=== PATIENT | male | born 1990 | race Caucasian/White ===

== ENCOUNTER 2018-03-25 16:57 | Emergency (ER) | payer MEDICAID, OTHER ==
[2018-03-25 17:14] VITALS: BP 147/97
--- NOTE | 2018-03-25 18:29 | ED Physician Documentation ---
PD HPI OPHTHO - Stated complaint Stated Complaint: R EYE PX - Chief complaint Chief Complaint: Heent - History obtained from History obtained from: Patient - History of Present Illness Timing - onset: Yesterday (got dust or such in eye yesterday. was using bench grinder but had eye wear on. He had feeling of FB that fell into eye and not forceful injury.) Timing - duration: Days (1 day - he tried irrigating eye yesterday. Eye red and irritated, with still FB feeling today.) Timing - details: Abrupt onset, Still present Location: Right Quality / character: Aching Associated symptoms: Redness, FB sensation. No: Swelling, Discharge Contributing factors: FB. No: Wears contacts Similar symptoms before: Has not had sx before Recently seen: Not recently seen Review of Systems Eyes: reports: Irritation. denies: Loss of vision, Decreased vision, Photophobia, Discharge Nose: reports: Rhinorrhea / runny nose, Congestion Throat: reports: Sore throat Respiratory: reports: Cough PD PAST MEDICAL HISTORY - Past Medical History Cardiovascular: None Respiratory: None Neuro: None Endocrine/Autoimmune: None - Present Medications Home Medications: Ambulatory Orders Medication Instructions Recorded Confirmed Ketorolac 0.45% Ophth Drops 2 each RIGHTEYE TID #1 bottle 03/25/18 [Acuvail] - Allergies Allergies/Adverse Reactions: Allergies Allergy/AdvReac Type Severity Reaction Status Date / Time Penicillins Allergy Unknown Verified 03/25/18 17:14 PD ED PE NORMAL - Vitals Vital signs reviewed: Yes - General General: Alert and oriented X 3, No acute distress, Well developed/nourished - HEENT HEENT: PERRL, EOMI, Moist mucous membranes, Pharynx benign - Neck Neck: Supple, no meningeal sign, No adenopathy PD ED PE EXPANDED - Eyes Eyes: PERRL, EOMI, No eyelid FB (everted), Injected conj/sclera, Corneal FB (anterior medial, small speck, removed with blunt tip needle.). No: Exudate Results - Vitals Vitals: Vital Signs - 24 hr 03/25/18 17:09 Temperature 36.3 C L Heart Rate 98 Respiratory 16 Rate Blood Pressure 147/97 H O2 Saturation 98 Oxygen O2 Source Room air PD MEDICAL DECISION MAKING - ED course Complexity details: considered differential, d/w patient Departure - Departure Disposition: 01 Home, Self Care Clinical Impression: Corneal foreign body Qualifiers: Encounter type: initial encounter Laterality: right Qualified Code(s): T15.01XA - Foreign body in cornea, right eye, initial encounter Conjunctivitis Qualifiers: Conjunctivitis type: acute Acute conjunctivitis type: atopic Laterality: right Qualified Code(s): H10.11 - Acute atopic conjunctivitis, right eye Condition: Stable Record reviewed to determine appropriate education?: Yes Instructions: ED Foreign Body Cornea Follow-Up: Adolfo Dunlap MD [Provider Admit Priv/Credential] - Prescriptions: Ketorolac 0.45% Ophth Drops [Acuvail] 2 each RIGHTEYE TID #1 bottle Comments: Use the ketorolac anti-inflammatory eye drops or can use OTC drops to help with the eye redness. I think I got the foreign body all out. Recheck if not fully better over the next couple of days. Only use the numbing eyedrops when rested and indoors and did not use some past a day. Discharge Date/Time: 03/25/18 19:13
== END 2018-03-25 19:13 | disposition home or self-care (01) ==
LOC: ED 16:57
DX: T15.01XA Foreign body in cornea, right eye, initial encounter (principal); H10.11 Acute atopic conjunctivitis, right eye
CPT/HCPCS: 65220; 99283